=== PATIENT | male | born 1965 | race Caucasian/White ===

== ENCOUNTER 2021-01-12 07:18 | Outpatient (CLI) | payer OTHER, SELFPAY ==
[2021-01-12 08:32] LABS: Hematocrit 42.6 % (42.0-52.0); Hemoglobin 14.6 g/dL (14.0-18.0); Mean Corpuscular HGB Conc 34.3 g/dl (32-36); Mean Corpuscular Hemoglobin 30.9 pg (26-34); Mean Corpuscular Volume 90.1 fl (80-100); Mean Platelet Volume 10.8 fl (7.4-10.4); Platelet Count Result 241 k/mm3 (150-375); Red Blood Count 4.73 M/mm3 (4.6-6.20); Red Cell Distribution Width 12.4 % (11.5-14.5)
[2021-01-12 08:35] LABS: Rheumatoid Factor < 12.0 IU/ML (<12)
[2021-01-12 09:02] LABS: Prostate Specific Antigen 0.6 ng/mL (< OR = 4.0)
[2021-01-12 13:00] LABS: Erythrocyte Sedimentation Rate 13 mm/hr (0-20)
[2021-01-12 13:42] LABS: Add Urine Microscopic? YES; Appearance Urine Clear (Clear); Bilirubin Urine Negative (Negative); Blood Urine Negative (Negative); Color Urine Amber (Yellow); Glucose Urine UA Negative (Negative); Ketones Urine Negative (Negative); Leukocyte Esterase Ur Negative LEU/UL (NEGATIVE); Nitrate Urine Negative (Negative); Protein Urine Negative (Negative); Urobilinogen Urine Negative mg/dL (<2.0)
[2021-01-14 19:50] LABS: PCP NEGATIVE ng/mL (<25)
[2021-01-18 15:11] LABS: Marijuana Metabolites NEGATIVE
[2021-01-18 15:14] LABS: Amphetamines NEGATIVE
[2021-01-18 15:15] LABS: Barbiturates NEGATIVE; Benzodiazepines NEGATIVE
[2021-01-18 15:16] LABS: Cocaine Metabolites NEGATIVE
== END 2021-01-12 07:19 | disposition home or self-care (01) ==
LOC: ANHLAB 07:18
PROVIDERS: PCP Emergency Medicine; Visit Provider Emergency Medicine
DX: Z00.00 Encounter for general adult medical examination without abnormal findings (principal); R10.9 Unspecified abdominal pain
CPT/HCPCS: 36415; 71046; 80307; 81001; 84153; 85027; 85652; 86038; 86430

== ENCOUNTER 2021-01-12 07:58 | Outpatient (CLI) | payer OTHER, SELFPAY ==
--- NOTE | ~2021-01-12 | XR_ITS ---
EXAMINATION: XR chest 2V DATE: 01/12/2021 08:24 INDICATION: Fever. TECHNIQUE: Frontal and lateral views of the chest were obtained. COMPARISON: None. FINDINGS: There is mild atelectasis in the lower lung zones. No pleural effusion or pneumothorax. The heart size is normal. There is mild chronic anterior wedging of T12 and L1 vertebral bodies. IMPRESSION: 1. Mild atelectasis in the lower lung zones. Reviewed, dictated and finalized at location A. [facility]
== END 2021-01-12 07:59 | disposition home or self-care (01) ==
PROVIDERS: PCP Emergency Medicine; Visit Provider Emergency Medicine
DX: R50.9 Fever, unspecified (principal); J98.11 Atelectasis
CPT/HCPCS: 71046